=== PATIENT | female | born 1995 | race Caucasian/White ===

== ENCOUNTER 2025-02-27 12:12 | Emergency (ER) | payer OTHER, SELFPAY ==
[2025-02-27 12:12] VITALS: BMI 32.2
[2025-02-27 12:21] VITALS: BP 137/94
--- NOTE | 2025-02-27 13:19 | ED.GENMED ---
History of Present Illness
General
Chief Complaint: Cold/Flu/URI Symptoms
Time Seen by Provider: 02/27/25 13:18
History of Present Illness
History of Present Illness:
FOCUSED PAST MEDICAL HISTORY
- No significant past medical history
REVIEW OF OLD RECORDS
- The patient was seen here in 2020 diagnosed with a calf strain
Note:
CHIEF COMPLAINT(S)
Body aches and sore throat.
HISTORY OF PRESENT ILLNESS
The patient is a 29-year-old female who presented with body aches and sore throat that began on Friday. Initially, she experienced a sore throat and reported that her throat felt swollen and made swallowing difficult. The patient mentioned she did
not attend work on Friday due to these symptoms. She attempted testing for COVID-19, which came back negative. She reported not being tested for influenza or streptococcal infection prior to this visit. On examination, the patient was noted to have
a swollen throat. She was advised to have a throat swab for streptococcal testing. The treatment plan includes ordering blood work, administering intravenous fluids, intravenous steroids, and intravenous ketorolac for pain management.
PHYSICAL EXAM
General: Alert, no acute distress.
Skin: Warm, dry.
Head: Normocephalic, atraumatic.
Neck: Supple, trachea midline.
Eye Ears, nose, mouth and throat: Oral mucosa moist, Some mild erythema noted to the posterior oropharynx, no exudate, uvula midline
Cardiovascular: Normal peripheral perfusion, no edema.
Respiratory: Respirations are non-labored, no respiratory distress, no nasal congestion reported.
Gastrointestinal: Abdomen nondistended.
Back: Normal range of motion, normal alignment.
Musculoskeletal: Normal ROM, normal strength.
Neurological: Alert and oriented to person, place, time, and situation, no focal neurological deficit observed.
Psychiatric: Cooperative, appropriate mood & affect.
PLAN
- Perform throat swab for streptococcal testing.
- Obtain blood work.
- Administer intravenous fluids.
- Administer intravenous corticosteroid therapy.
- Administer intravenous ketorolac for pain management.
DIFFERENTIAL DIAGNOSIS
The Differential Diagnosis includes, in no particular order and is not limited to:
1. Streptococcal pharyngitis
2. Influenza
3. Viral pharyngitis
4. Acute tonsillitis
5. Mononucleosis
6. COVID-19 (ruled out with negative test)
7. Allergic rhinitis
8. Laryngitis
9. Peritonsillar abscess
10. Gastroesophageal reflux disease (GERD)
LABS
- Flu, rapid strep negative, white count 9.1, hemoglobin 11.0 with no old to compare, chemistries unremarkable, normal transaminases
UPDATE
-SUMMARY OF ENCOUNTER
The patient, a 29-year-old female, presented to the emergency department with body aches, sore throat, and nasal congestion. Initial testing included a flu test which returned negative, and a throat swab for streptococcal testing which also returned
negative. Basic labs including white blood cell count and electrolytes were within normal limits. The patient was managed with intravenous fluids and a dose of intravenous corticosteroids was administered for throat relief. The likely diagnosis is a
viral syndrome not covered by routine testing, as common viral illnesses can present with these symptoms.
DISPOSITION
Discharge.
ASSESSMENT
The patient is suspected of having a viral syndrome.
EMERGENCY TREATMENTS ADMINISTERED
A dose of intravenous corticosteroids was administered.
PLAN
The patient is to be discharged with a prescription for oral corticosteroids to help with the sore throat.
MEDICATION RECONCILIATION
1. Intravenous corticosteroids administered in the emergency department.
2. Prescription for oral corticosteroids provided for home use.
MEDICAL DECISION MAKING
-Chronic conditions affecting care: Possible viral syndrome. Differential diagnoses include streptococcal pharyngitis, influenza, viral pharyngitis, acute tonsillitis, mononucleosis, allergic rhinitis, laryngitis, peritonsillar abscess,
gastroesophageal reflux disease (GERD).
-Data:
Category 1
Independent review of lab tests confirmed normal white blood cell count and normal electrolytes.
-Risk:
Prescription medication was prescribed: Oral corticosteroids.
DIAGNOSIS
Viral syndrome (ICD-10: B97.89).
Past History
Past History
ED Past Medical History: None
ED Past Surgical History: None
Phy Exam
Physical Exam
Physical Exam:
See HPI
Course
Orders/Labs/Results
Orders:
Orders
02/27/25 13:28
0.9% Sodium Chloride 1000 ml [Nss] 1,000 ml IV BOLUS
Dexamethasone Sod Phosphate [Decadron] 10 mg IV NOW STA
Ketorolac [Toradol] 15 mg IV NOW STA
02/27/25 13:49
Complete Blood Count/With Diff Urgent
Comprehensive Metabolic Panel Urgent
Monotest Urgent
02/27/25 13:50
Rapid Strep Group A Urgent
ROSALIA Source: Throat/Pharynx
Specimen Description:
Date Specimen was Collected: 02/27/25
Time Specimen was Collected: 13:48
02/27/25 14:55
Influenza A+B Rapid Molecular Urgent
ROSALIA Source: Nasal Swab
Specimen Description:
Abnormal Lab Results
02/27/25
13:49
RBC 3.56 L 10^6/uL
(4.20-5.40)
Hgb 11.0 L g/dL
(12.0-16.0)
Hct 33.3 L %
(37.0-47.0)
Absolute Neuts (auto) 7.3 H 10^3/uL
(1.4-6.5)
Absolute Lymphs (auto) 1.1 L 10^3/uL
(1.2-3.4)
Neutrophils % 80.4 H %
(42.2-75.2)
Lymphocytes % 12.0 L %
(20.5-51.1)
BUN 6 L mg/dl
(7-17)
Glucose 132 H mg/dl
(70-99)
Calcium 8.3 L mg/dl
(8.4-10.2)
02/27/25 13:49
02/27/25 13:49
Vital Signs
Initial and Last Documented VS:
Initial Vital Signs
Temp Pulse Resp BP Pulse Ox
37.1 C 105 18 137/94 97
02/27/25 12:21 02/27/25 12:21 02/27/25 12:21 02/27/25 12:21 02/27/25 12:21
Last Documented Vital Signs
Temp Pulse Resp BP Pulse Ox
36.7 C 91 16 128/64 99
02/27/25 14:00 02/27/25 14:00 02/27/25 14:00 02/27/25 14:00 02/27/25 14:00
*Pulse Oximetry
SaO2: 97
Oxygen Mode of Delivery: Room air
Patient hypoxic: no
*Critical Care Note
Total Time (30-74mins, 75-104mins- exclusive of procedures): Not Applicable
ED Attending Note
-
Portions of this chart may have been created with voice recognition software.� Occasional wrong word or��sound alike� substitutions may have occurred due to the inherent limitations of voice recognition software.
Discharge Plan
Departure
Patient Disposition: Home (Routine Discharge)
Date of Disposition: 02/27/25
Time of Disposition: 15:40
Patient with high blood pressure during this ER visit?: Yes
Discharge Problem:
Acute viral syndrome
Instructions: Viral Syndrome (DC)
Prescriptions:
New
prednisone 50 mg tablet
50 mg PO DAILY Qty: 4 0RF
Referrals:
NONE,* [Family Provider, Internal Medicine]
Activity Restrictions/Additional Instructions:
Your white blood cell count is normal. The lymphocyte percentage is low which can commonly be seen with COVID so COVID is still a possibility. It is also positive you could have some other virus not necessarily COVID. I am sending a prescription
for steroids to your pharmacy to help with the sore throat and other symptoms. Flu and strep test are both negative.
Interventions
Interventions:
*Risk Screen - Suicide Last Done: 02/27/25 12:21
*General Assessment Last Done: 02/27/25 12:21
Discharge Date and Time
Print Language: ROMANIAN
[2025-02-27] MEDS: NSS 1000 IV (13:52)
[2025-02-27 14:00] VITALS: BP 128/64
[2025-02-27] MEDS: DECADRON 10 MG IV (14:00)
[2025-02-27] MEDS: TORADOL 15 MG IV (14:00)
[2025-02-27 14:13] LABS: Hematocrit 33.3 % (37.0-47.0); Hemoglobin 11.0 g/dL (12.0-16.0); Mean Corp Hgb Conc. 33.0 g/dL (33.0-37.0); Mean Corpuscular Volume 93.5 fL (81.0-99.0); Nucleated Red Blood Cells % 0 %; Platelet Count 181 10^3/uL (130-400); Red Cell Dist. Width 12.1 % (11.5-14.5)
[2025-02-27 14:32] LABS: ALT (SGPT) 19 U/L (0-35); AST (SGOT) 19 U/L (14-36); Albumin 3.9 g/dl (3.5-5.0); Alkaline Phosphatase 42 U/L (38-126); Blood Urea Nitrogen 6 mg/dl (7-17); Calcium 8.3 mg/dl (8.4-10.2); Carbon Dioxide 29 mmol/L (22-30); Chloride 102 mmol/L (98-107); Estimated Creatinine Clearance > 125 ml/min; Glucose 132 mg/dl (70-99); Potassium 3.5 mmol/L (3.5-5.1); Sodium 135 mmol/L (135-145); eGFR > 60.00
[2025-02-27 14:41] LABS: Total Protein 6.7 g/dl (6.3-8.2)
[2025-02-27 15:50] VITALS: BP 118/69
== END 2025-02-27 15:50 | disposition home or self-care (01) ==
LOC: EMR 12:12
PROVIDERS: EMERGENCY PHYSICIAN Emergency Medicine
DX: B34.9 Viral infection, unspecified (principal); R13.10 Dysphagia, unspecified
CPT/HCPCS: 96374; 96375; 96361; 99284; 80053; 85025; 86308; 87070; 87502; 87880